=== PATIENT | female | born 1980 | race Caucasian/White ===

== ENCOUNTER 2021-04-02 03:32 | Observation (INO) | payer BC ==
[~2021-04-02] VITALS: Ht 157.5 cm; Wt 77.1 kg
[2021-04-02] MEDS ORDERED: LR 1,000 ML IV SCH (04:45)
[2021-04-02 07:55] LABS: BASOPHILS # (AUTO) 0.2 K/uL (0.0-0.2); BASOPHILS % (AUTO) 1.4 % (0.0-2.0); EOSINOPHILS # (AUTO) 0.1 K/uL (0.0-0.4); EOSINOPHILS % (AUTO) 0.5 % (0.0-4.0); HEMATOCRIT 35.3 % (36-48); HEMOGLOBIN 11.8 g/dL (12.0-16.0); LYMPHOCYTES # (AUTO) 2.1 K/uL (1.0-5.5); LYMPHOCYTES % (AUTO) 17.6 % (20.5-51.5); MEAN CORPUSCULAR HEMOGLOBIN 29 pg (27-31); MEAN CORPUSCULAR HGB CONC 33 % (32-36); MEAN CORPUSCULAR VOLUME 88 fL (79.0-98.0); MONOCYTES # (AUTO) 0.6 K/uL (0.0-1.0); NEUTROPHILS # (AUTO) 8.9 K/uL (1.8-7.7); NEUTROPHILS % (AUTO) 75.5 % (40.0-70.0); PLATELET COUNT (AUTO) 188 K/uL (130-430); RED BLOOD CELL COUNT(AUTO) 4.03 MIL/uL (4.2-6.2); WHITE BLOOD COUNT (AUTO) 11.8 K/uL (4.8-10.8)
[2021-04-02 08:03] LABS: CALCIUM 8.2 mg/dL (8.4-11.0); CREATININE 0.47 mg/dL (0.55-1.30); POTASSIUM 3.6 mmol/L (3.5-5.1)
[2021-04-02 08:08] LABS: ALBUMIN 2.7 g/dL (3.4-4.8); TOTAL BILIRUBIN 0.2 mg/dL (0.0-1.0)
[2021-04-02] MEDS: BETAMET ACET/BETAMET NA PH 30 MG/5 ML VIAL IM ONE (10:52)
[2021-04-03] MEDS: BETAMET ACET/BETAMET NA PH 30 MG/5 ML VIAL IM ONE (10:08)
[2021-04-03] MEDS ORDERED: BETAMET ACET/BETAMET NA PH 30 MG/5 ML VIAL IM ONE (10:08)
== END 2021-04-03 12:15 | disposition home or self-care (01) ==
LOC: SPU 03:32
PROVIDERS: ADMIT Obstetrics & Gynecology; ATTEND Obstetrics & Gynecology
DX: O46.93 Antepartum hemorrhage, unspecified, third trimester (principal); O09.523 Supervision of elderly multigravida, third trimester; O34.219 Maternal care for unspecified type scar from previous cesarean delivery; Z3A.28 28 weeks gestation of pregnancy
CPT/HCPCS: 36415; 76805; 80053; 85025; 86886; 86900; 86901; 96372 ×2; G0378 ×2; J0702 ×2; 81002

== ENCOUNTER 2021-05-09 18:00 | Inpatient (IN) | payer BC, SELFPAY ==
[~2021-05-09] VITALS: Ht 157.5 cm; Wt 82.6 kg
[2021-05-09] MEDS ORDERED: MAGNESIUM SULFATE IN WATER 100 ML IV ONE (20:30)
[2021-05-09 20:56] LABS: BILIRUBIN,URINE NEGATIVE (NEGATIVE); BLOOD, URINE 3+ (NEGATIVE); COLOR,URINE YELLOW (YELLOW); GLUCOSE,URINE NEGATIVE (NEGATIVE); KETONES,URINE 3+ (NEGATIVE); LEUKOCYTE ESTERASE ,URINE NEGATIVE (NEGATIVE); NITRITE, URINE NEGATIVE (NEGATIVE); PROTEIN URINE NEGATIVE (NEGATIVE); UROBILINOGEN,URINE 0.2 (0.2-1.0)
[2021-05-09 21:02] LABS: BASOPHILS # (AUTO) 0.1 K/uL (0.0-0.2); BASOPHILS % (AUTO) 0.6 % (0.0-2.0); EOSINOPHILS # (AUTO) 0.1 K/uL (0.0-0.4); EOSINOPHILS % (AUTO) 0.7 % (0.0-4.0); HEMATOCRIT 37.5 % (36-48); HEMOGLOBIN 12.5 g/dL (12.0-16.0); LYMPHOCYTES # (AUTO) 2.3 K/uL (1.0-5.5); LYMPHOCYTES % (AUTO) 19.6 % (20.5-51.5); MEAN CORPUSCULAR HEMOGLOBIN 29 pg (27-31); MEAN CORPUSCULAR HGB CONC 33 % (32-36); MEAN CORPUSCULAR VOLUME 87 fL (79.0-98.0); MONOCYTES # (AUTO) 0.7 K/uL (0.0-1.0); MONOCYTES % (AUTO) 5.7 % (1.7-9.3); NEUTROPHILS # (AUTO) 8.6 K/uL (1.8-7.7); NEUTROPHILS % (AUTO) 73.4 % (40.0-70.0); PLATELET COUNT (AUTO) 176 K/uL (130-430); RED BLOOD CELL COUNT(AUTO) 4.33 MIL/uL (4.2-6.2); RED CELL DISTRIBUTION WIDTH 14.1 % (9.0-15.0); WHITE BLOOD COUNT (AUTO) 11.7 K/uL (4.8-10.8)
[2021-05-09 21:08] LABS: CLARITY/URINE HAZY (CLEAR)
[2021-05-09 21:10] LABS: RBC,URINE >100 /HPF (0-3); WBC,URINE 0-3 /HPF (0-3)
[2021-05-09 21:11] LABS: BACTERIA,URINE FEW /HPF (None Seen); MUCUS,URINE None Seen /LPF (None Seen)
[2021-05-09 21:13] LABS: CALCIUM 8.3 mg/dL (8.4-11.0); CREATININE 0.41 mg/dL (0.55-1.30); POTASSIUM 3.6 mmol/L (3.5-5.1)
[2021-05-09 21:18] LABS: ALBUMIN 2.9 g/dL (3.4-4.8); TOTAL BILIRUBIN 0.1 mg/dL (0.0-1.0)
[2021-05-09] MEDS: LR 1,000 ML IV SCH (21:52)
[2021-05-09] MEDS: MAGNESIUM SULFATE IN WATER 500 ML IV PRN (23:12)
[2021-05-10] MEDS: LR 1,000 ML IV SCH (05:27)
[2021-05-10] MEDS: MAGNESIUM SULFATE IN WATER 500 ML IV PRN (09:19)
[2021-05-10] MEDS ORDERED: NIFEdipine (O.B. USE ONLY) 10 MG CAPSULE PO ONE (09:45)
== END 2021-05-10 12:00 | disposition home or self-care (01) | DRG 566 ==
LOC: OBSVTOIN 18:00 → SPU 18:00
PROVIDERS: ADMIT Obstetrics & Gynecology; ATTEND Obstetrics & Gynecology
DX: O44.03 Complete placenta previa NOS or without hemorrhage, third trimester (principal); Z20.822 Contact with and (suspected) exposure to COVID-19; Z3A.34 34 weeks gestation of pregnancy
CPT/HCPCS: 36415; 76805-TC; 80053; 81000; 85025; 86886; 86900; 86901; J3475

== ENCOUNTER 2021-05-17 04:20 | Inpatient (IN) | payer BC, SELFPAY ==
[~2021-05-17] VITALS: Ht 157.5 cm; Wt 85.3 kg
[2021-05-17] MEDS ORDERED: LR 1,000 ML IV SCH (05:45)
[2021-05-17 06:02] VITALS: BP_SYST 103
[2021-05-17 07:15] LABS: BILIRUBIN,URINE NEGATIVE (NEGATIVE); BLOOD, URINE 3+ (NEGATIVE); GLUCOSE,URINE NEGATIVE (NEGATIVE); KETONES,URINE NEGATIVE (NEGATIVE); LEUKOCYTE ESTERASE ,URINE NEGATIVE (NEGATIVE); NITRITE, URINE NEGATIVE (NEGATIVE); PROTEIN URINE TRACE (NEGATIVE); UROBILINOGEN,URINE 0.2 (0.2-1.0)
[2021-05-17 07:28] LABS: CLARITY/URINE TURBID (CLEAR); COLOR,URINE BROWN (YELLOW)
[2021-05-17 07:40] LABS: ANION GAP 12 (5-15); CALCIUM 8.3 mg/dL (8.4-11.0); CHLORIDE 103 mmol/L (98-107); GLUCOSE 79 mg/dL (70-99); POTASSIUM 3.6 mmol/L (3.5-5.1); SODIUM SERUM 135 mmol/L (136-145); UREA NITROGEN, BLOOD 9 mg/dL (8-21)
[2021-05-17 07:45] LABS: BASOPHILS % (AUTO) 0.3 % (0.0-2.0); EOSINOPHILS # (AUTO) 0.1 K/uL (0.0-0.4); EOSINOPHILS % (AUTO) 0.6 % (0.0-4.0); HEMATOCRIT 33.8 % (36-48); HEMOGLOBIN 11.3 g/dL (12.0-16.0); LYMPHOCYTES % (AUTO) 18.1 % (20.5-51.5); MEAN CORPUSCULAR HEMOGLOBIN 29 pg (27-31); MEAN CORPUSCULAR HGB CONC 34 % (32-36); MEAN CORPUSCULAR VOLUME 87 fL (79.0-98.0); MONOCYTES # (AUTO) 0.9 K/uL (0.0-1.0); MONOCYTES % (AUTO) 7.9 % (1.7-9.3); NEUTROPHILS # (AUTO) 8.1 K/uL (1.8-7.7); NEUTROPHILS % (AUTO) 73.1 % (40.0-70.0); PLATELET COUNT (AUTO) 142 K/uL (130-430); RED CELL DISTRIBUTION WIDTH 14.3 % (9.0-15.0)
[2021-05-17 07:49] LABS: GFR AFRICAN AMERICAN 177 mL/min (>90)
[2021-05-17 07:50] LABS: ALANINE AMINOTRANSFERASE 12 U/L (12-78); ALBUMIN 2.4 g/dL (3.4-4.8); ASPARTATE AMINOTRANSFERASE 12 U/L (10-37); TOTAL BILIRUBIN < 0.1 mg/dL (0.0-1.0)
[2021-05-17 07:55] LABS: INR 0.9 (0.8-1.2); PROTHROMBIN TIME 9.3 SECS (9.5-12.5)
[2021-05-17 08:22] LABS: BACTERIA,URINE FEW /HPF (None Seen); RBC,URINE >100 /HPF (0-3); WBC,URINE 0-3 /HPF (0-3)
[2021-05-17] MEDS ORDERED: BETAMET ACET/BETAMET NA PH 30 MG/5 ML VIAL IM ONE (09:15)
[2021-05-17] MEDS: NIFEdipine (O.B. USE ONLY) 10 MG CAPSULE PO SCH ×3 (09:44→23:42)
[2021-05-18] MEDS: NIFEdipine (O.B. USE ONLY) 10 MG CAPSULE PO SCH ×4 (06:00→11:55)
[2021-05-18] MEDS ORDERED: BETAMET ACET/BETAMET NA PH 30 MG/5 ML VIAL IM ONE (09:15)
== END 2021-05-18 12:34 | disposition home or self-care (01) | DRG 566 ==
LOC: SPU 04:20 → OBSVTOIN 05:20
PROVIDERS: ADMIT Obstetrics & Gynecology; ATTEND Obstetrics & Gynecology
DX: O44.03 Complete placenta previa NOS or without hemorrhage, third trimester (principal); D69.6 Thrombocytopenia, unspecified; Z3A.35 35 weeks gestation of pregnancy; O34.211 Maternal care for low transverse scar from previous cesarean delivery; O99.113 Other diseases of the blood and blood-forming organs and certain disorders involving the immune mechanism complicating pregnancy, third trimester; Z20.822 Contact with and (suspected) exposure to COVID-19
CPT/HCPCS: 36415; 80053; 81000; 85025; 85384; 85610-TC; 85730-TC; 86592; 86886; 86900; 86901; G0378; J0702